=== PATIENT | female | born 1975 | race Caucasian/White ===

== ENCOUNTER → 2023-07-19 13:26 | Outpatient (REF) | payer BC, SELFPAY | LOC: HWRAD 13:26 | PROVIDERS: ATTENDING PHYSICIAN Student in an Organized Health Care Education/Training Program; FAMILY PHYSICIAN Family Medicine | DX: H16.229 Keratoconjunctivitis sicca, not specified as Sjogren's, unspecified eye (principal) | CPT/HCPCS: 76536 ==

== ENCOUNTER → 2024-04-05 15:28 | Outpatient (REF) | payer BC, SELFPAY | LOC: MRI 3T 15:28 | PROVIDERS: ATTENDING PHYSICIAN Internal Medicine Endocrinology, Diabetes & Metabolism; FAMILY PHYSICIAN Family Medicine | DX: H05.20 Unspecified exophthalmos (principal); E22.1 Hyperprolactinemia; H57.10 Ocular pain, unspecified eye | CPT/HCPCS: 70553; A9575 ==

== ENCOUNTER → 2024-05-08 10:55 | Outpatient (REF) | payer BC, SELFPAY | LOC: RAD 10:55 | PROVIDERS: ATTENDING PHYSICIAN Student in an Organized Health Care Education/Training Program; FAMILY PHYSICIAN Family Medicine | DX: M79.646 Pain in unspecified finger(s) (principal); M72.2 Plantar fascial fibromatosis | CPT/HCPCS: 73130; 73630 ==

== ENCOUNTER → 2024-08-09 07:16 | Outpatient (REF) | payer BC, SELFPAY | LOC: RAD 07:16 | PROVIDERS: ATTENDING PHYSICIAN Student in an Organized Health Care Education/Training Program; FAMILY PHYSICIAN Nurse Practitioner | DX: M72.2 Plantar fascial fibromatosis (principal); M79.646 Pain in unspecified finger(s) | CPT/HCPCS: 76881 ==